=== PATIENT | female | born 1975 | race African-American/Black ===

== ENCOUNTER 2019-06-23 06:35 | Inpatient (IN) | payer SELFPAY ==
[~2019-06-23] VITALS: Ht 177.8 cm; Wt 80.8 kg
[2019-06-23] MEDS ORDERED: SODIUM CHLORIDE 0.9% 1,000 ML IV ONE ×2 (06:57→07:50)
[2019-06-23] MEDS ORDERED: ONDANSETRON HCL 4MG/2ML INJ IV ONE (08:30)
[2019-06-23] MEDS ORDERED: FENTANYL CITRATE/PF 50MCG/ML 2ML VIAL IV ONE (08:30)
[2019-06-23 08:35] LABS: BASOPHILS % 0.6 % (0.0-2.0); EOSINOPHILS % 1.4 % (0.0-5.0); HEMATOCRIT. 34.5 % (36.0-48.0); HEMOGLOBIN. 11.8 g/dL (12.0-16.0); LYMPHOCYTES % 14.5 % (20.0-50.0); MEAN CORPUSCULAR HEMOGLOBIN 31.7 pg (28.0-32.0); MEAN CORPUSCULAR VOLUME 93.1 fL (81.0-99.0); MEAN PLATELET VOLUME 8.5 fl (7.4-10.4); MONOCYTES % 4.3 % (2.0-8.0); NEUTROPHILS % 79.2 % (40.0-76.0); PLATELET 275 x1000/uL (130-400); RED BLOOD CELL COUNT 3.71 mill/uL (4.2-5.4); RED CELL DISTRIBUTION WIDTH 14.7 % (11.6-14.6)
[2019-06-23 08:39] LABS: CHLORIDE 108 mEq/L (98-107)
[2019-06-23 08:41] LABS: INR 1.1; PROTHROMBIN TIME 10.9 sec (9.6-11.0)
[2019-06-23 08:45] LABS: ETHANOL BLOOD < 10 mg/dL
[2019-06-23] MEDS ORDERED: LIDOCAINE HCL 1% 20ML VIAL (Pyxis) INJ ONE (08:48)
[2019-06-23] MEDS ORDERED: FENTANYL CITRATE/PF 50MCG/ML 2ML VIAL ONE (08:48)
[2019-06-23] MEDS ORDERED: MIDAZOLAM HCL 2 MG/2 ML VIAL ONE (08:48)
[2019-06-23] MEDS ORDERED: PHENYLEPHRINE HCL 10 MG/ML 1ML (IV VIAL) IV ONE (08:49)
[2019-06-23] MEDS ORDERED: ROCURONIUM BROMIDE 10MG/ML VIAL 5ML IV ONE (08:49)
[2019-06-23] MEDS ORDERED: CEFAZOLIN SODIUM 1000MG/VIAL ONE (08:49)
[2019-06-23] MEDS ORDERED: DEXAMETHASONE 4MG/ML 1ML VIAL ONE (08:50)
[2019-06-23] MEDS ORDERED: EPHEDRINE SULFATE 50MG/ML VIAL ONE (08:50)
[2019-06-23] MEDS ORDERED: SUCCINYLCHOLINE CHLORIDE 200MG/10ML IV ONE (08:50)
[2019-06-23] MEDS ORDERED: SODIUM CHLORIDE 0.9% 10ML VIAL ONE (09:00)
[2019-06-23 09:04] LABS: HCG SCREEN POSITIVE
[2019-06-23 09:05] LABS: B-HCG QUANTITATIVE 21591 mIU/mL (<3)
[2019-06-23] MEDS ORDERED: ETOMIDATE 2MG/ML 10ML VIAL IV ONE (09:14)
[2019-06-23] MEDS ORDERED: PROPOFOL 200MG/20ML VIAL IV ONE (09:16)
[2019-06-23] MEDS ORDERED: METOCLOPRAMIDE HCL 10MG/2ML VIAL ONE (09:56)
[2019-06-23] MEDS ORDERED: ONDANSETRON HCL 4MG/2ML INJ ONE (09:56)
[2019-06-23] MEDS ORDERED: LABETALOL HCL 5MG/ML VIAL 20ML IV ONE (10:36)
[2019-06-23] MEDS ORDERED: NEOSTIGMINE METHYLSULFATE 1MG/ML 10 ML VIAL ONE (10:39)
[2019-06-23] MEDS ORDERED: GLYCOPYRROLATE 0.2 MG/ML 2ML VIAL ONE ×2 (10:39→10:42)
[2019-06-23] MEDS ORDERED: ACETAMINOPHEN 650MG SUPP PR PRN (10:45)
[2019-06-23] MEDS ORDERED: TETANUS, DIPHTHERIA, PERTUSSIS VAC/PF 0.5ML (>7YR OLD) IM ONE (10:45)
[2019-06-23] MEDS ORDERED: INFLUENZA VIRUS VACCINE(AFLURIA) 0.5ML SYR IM ONE (10:45)
[2019-06-23] MEDS ORDERED: ONDANSETRON HCL 4MG/2ML INJ IV PRN (10:45)
[2019-06-23] MEDS: HYDROMORPHONE HCL/PF 2MG/ML CPJ IV PRN ×4 (11:26→19:18)
[2019-06-23 12:00] VITALS: BP 127/80
[2019-06-23 14:00] VITALS: BP 127/80
[2019-06-23 14:42] VITALS: BP 127/80
[2019-06-23 16:06] VITALS: BP 124/82
[2019-06-23] MEDS: DEXT 5%/0.45% NACL KCL 20MEQ/L 1,000 ML IV SCH (16:47)
[2019-06-23] MEDS: CEFAZOLIN 1000MG PREMIX 50 ML IV SCH (16:47)
[2019-06-23] MEDS: KETOROLAC 30MG/ML VIAL IV SCH (18:07)
[2019-06-23 20:00] VITALS: BP 131/81
[2019-06-23] MEDS: FAMOTIDINE 20MG/2ML VIAL IV SCH (20:12)
[2019-06-24] VITALS: BP 107/43
[2019-06-24] MEDS: KETOROLAC 30MG/ML VIAL IV SCH ×2 (00:15→06:29)
[2019-06-24 01:17] LABS: BASOPHILS % 0.7 % (0.0-2.0); HEMATOCRIT. 21.9 % (36.0-48.0); HEMOGLOBIN. 7.4 g/dL (12.0-16.0); LYMPHOCYTES % 10.5 % (20.0-50.0); MEAN CORPUSCULAR HEMOGLOBIN 31.3 pg (28.0-32.0); MEAN CORPUSCULAR VOLUME 92.9 fL (81.0-99.0); MEAN PLATELET VOLUME 8.3 fl (7.4-10.4); MONOCYTES % 8.5 % (2.0-8.0); NEUTROPHILS % 80.3 % (40.0-76.0); PLATELET 213 x1000/uL (130-400); RED BLOOD CELL COUNT 2.36 mill/uL (4.2-5.4); RED CELL DISTRIBUTION WIDTH 14.7 % (11.6-14.6)
[2019-06-24] MEDS: CEFAZOLIN 1000MG PREMIX 50 ML IV SCH (01:46)
[2019-06-24] MEDS: DEXT 5%/0.45% NACL KCL 20MEQ/L 1,000 ML IV SCH ×3 (01:46→21:05)
[2019-06-24 08:00] VITALS: BP 144/77
[2019-06-24] MEDS: FAMOTIDINE 20MG/2ML VIAL IV SCH ×2 (08:15→21:03)
[2019-06-24] MEDS: HYDROMORPHONE HCL/PF 2MG/ML CPJ IV PRN ×2 (08:15→21:04)
[2019-06-24 08:23] LABS: BASOPHILS % 0.3 % (0.0-2.0); MEAN CORPUSCULAR HEMOGLOBIN 31.2 pg (28.0-32.0); MEAN CORPUSCULAR VOLUME 92.5 fL (81.0-99.0); MEAN PLATELET VOLUME 8.8 fl (7.4-10.4); MONOCYTES % 8.1 % (2.0-8.0); NEUTROPHILS % 75.6 % (40.0-76.0); PLATELET 194 x1000/uL (130-400); RED BLOOD CELL COUNT 2.12 mill/uL (4.2-5.4); RED CELL DISTRIBUTION WIDTH 14.7 % (11.6-14.6)
[2019-06-24 08:53] LABS: HEMOGLOBIN. 6.6 g/dL (12.0-16.0)
[2019-06-24 08:54] LABS: HEMATOCRIT. 19.6 % (36.0-48.0)
[2019-06-24] MEDS ORDERED: ACETAMINOPHEN 325MG TABLET PO PRN (10:00)
[2019-06-24 12:00] VITALS: BP 120/63
[2019-06-24 14:04] VITALS: BP 130/82
[2019-06-24] MEDS ORDERED: ONDANSETRON HCL 4MG/2ML INJ IV PRN (15:00)
[2019-06-24 16:00] VITALS: BP 138/63
[2019-06-24 19:34] LABS: HEMATOCRIT 22.3 % (36.0-48.0); HEMOGLOBIN 7.4 g/dL (12.0-16.0)
[2019-06-24 20:00] VITALS: BP 128/75
[2019-06-25] VITALS: BP 124/73
[2019-06-25] MEDS ORDERED: DEXT 5%/0.45% NACL KCL 20MEQ/L 1,000 ML IV SCH
[2019-06-25 04:00] VITALS: BP 113/76
[2019-06-25] MEDS ORDERED: IBUPROFEN 800MG TABLET PO PRN (05:00)
[2019-06-25 07:16] LABS: BASOPHILS % 0.6 % (0.0-2.0); EOSINOPHILS % 1.7 % (0.0-5.0); HEMATOCRIT. 24.2 % (36.0-48.0); HEMOGLOBIN. 8.1 g/dL (12.0-16.0); LYMPHOCYTES % 27.7 % (20.0-50.0); MEAN CORPUSCULAR VOLUME 92.3 fL (81.0-99.0); MONOCYTES % 6.5 % (2.0-8.0); NEUTROPHILS % 63.5 % (40.0-76.0); PLATELET 210 x1000/uL (130-400); RED BLOOD CELL COUNT 2.62 mill/uL (4.2-5.4); RED CELL DISTRIBUTION WIDTH 15.2 % (11.6-14.6)
[2019-06-25 08:00] VITALS: BP 121/84
[2019-06-25] MEDS: FAMOTIDINE 20MG/2ML VIAL IV SCH ×2 (10:32→21:00)
[2019-06-25] MEDS: HYDROMORPHONE HCL/PF 2MG/ML CPJ IV PRN (10:32)
[2019-06-25 12:00] VITALS: BP 125/82
[2019-06-25] MEDS ORDERED: HYDROCODONE/ACETAMINOPHEN 5/325MG TABLET PO PRN (13:15)
[2019-06-25] MEDS ORDERED: BISACODYL 10MG SUPP PR NR (13:15)
[2019-06-25 16:00] VITALS: BP 116/65
[2019-06-25 20:00] VITALS: BP 106/66
[2019-06-26] VITALS: BP 113/66
[2019-06-26 04:00] VITALS: BP 101/55
[2019-06-26] MEDS ORDERED: IBUP-2030 PO (07:15)
[2019-06-26] MEDS ORDERED: MULT-1146 MT (07:15)
[2019-06-26] MEDS ORDERED: FERR325T6 MT (07:15)
[2019-06-26] MEDS: FAMOTIDINE 20MG/2ML VIAL IV SCH (07:38)
[2019-06-26 09:01] VITALS: BP 142/90
== END 2019-06-26 09:20 | disposition home or self-care (01) | DRG 545 ==
LOC: ER 06:35 → 6EST 08:26 → EDBEDREQ 08:37
PROVIDERS: ADMIT Specialist; ATTEND Specialist
PROC: 10T20ZZ Resection of Products of Conception, Ectopic, Open Approach (ICD-10-PCS; principal; 2019-06-23)
PROC: 0UT50ZZ Resection of Right Fallopian Tube, Open Approach (ICD-10-PCS; 2019-06-23)
PROC: 0UT00ZZ Resection of Right Ovary, Open Approach (ICD-10-PCS; 2019-06-23)
PROC: 30233N1 Transfusion of Nonautologous Red Blood Cells into Peripheral Vein, Percutaneous Approach (ICD-10-PCS; 2019-06-24)
DX: O00.201 Right ovarian pregnancy without intrauterine pregnancy (principal); K66.1 Hemoperitoneum; O99.321 Drug use complicating pregnancy, first trimester; D62 Acute posthemorrhagic anemia; O99.331 Smoking (tobacco) complicating pregnancy, first trimester; F12.10 Cannabis abuse, uncomplicated; F17.210 Nicotine dependence, cigarettes, uncomplicated; O99.011 Anemia complicating pregnancy, first trimester; K66.0 Peritoneal adhesions (postprocedural) (postinfection); O34.11 Maternal care for benign tumor of corpus uteri, first trimester; O34.81 Maternal care for other abnormalities of pelvic organs, first trimester; O99.611 Diseases of the digestive system complicating pregnancy, first trimester; D25.9 Leiomyoma of uterus, unspecified; Z3A.11 11 weeks gestation of pregnancy; Z79.899 Other long term (current) drug therapy
CPT/HCPCS: 36415; 76801; 80320; 84484; 84702; 84703; 85014; 85018; 86850; 86900; 86920; 88305; 93005; 99291; C1893; J0330; J0690; J1100; J1170; J1885; J2250; J2370; J2405; J2704; J2710; J2765; J3010; J3490; J7030; P9016; G0480